=== PATIENT | female | born 1990 | race Caucasian/White ===

== ENCOUNTER 2017-05-25 15:15 | Emergency (ER) | payer OTHER, SELFPAY | END 2017-05-25 15:46 | disposition home or self-care (01) | PROVIDERS: Family Provider Internal Medicine Adolescent Medicine | DX: J20.9 Acute bronchitis, unspecified (principal); Z34.82 Encounter for supervision of other normal pregnancy, second trimester | CPT/HCPCS: 87804 ==

== ENCOUNTER → 2017-07-01 13:58 | Outpatient (CLI) | payer OTHER, SELFPAY ==
--- NOTE | 2017-07-01 14:00 | US_ITS ---
US OB /maternal detail: INDICATION: Anatomy exam ITS.REASON: US OB Complete ORDERING PHYSICIAN: Kee Priest MD PATIENT AGE: 27 years TECHNIQUE: ultrasound transabdominal scanning. COMPARISON: No previous relevant studies. FINDINGS: Single viable intrauterine gestation. Cephalic position. Placenta: Posterior placenta grade 1. There is average amount fluid. The cervix appears satisfactory. Closed and measuring 3 cm in length. Complete survey performed and was unremarkable on the submitted images as in PACS. No discrete anomalies identified on survey imaging by technologist. Active fetus. Three-vessel cord with satisfactory umbilical cord insertion. 4- chamber heart noted. Survey of brain & ventricles. Face and neck survey unremarkable. Diaphragm and chest views unremarkable. Abdomen: Both kidneys noted and unremarkable. Stomach noted and satisfactory. Spine: Survey of the spine satisfactory with no anomalies identified nor imaged. Both arms and legs noted. Amniotic Fluid: Adequate. Maternal adnexa: No significant findings. Measurements: Average ultrasound age 20w6d. Gestational Age 20w6d. Estimated due date by ultrasound age 0611/12/2017. Estimated weight 383 grams.. This is 46 percentile based on last menstrual period BPD = 20w5d OFD = 21w4d HC = 20w4d AC = 20w4d FL = 21w3d Heart Rate = 150 bpm Cerebellum = 21w5d Humerus = 21w4d HC/AC is 1.17 (1.09-1.26). CI is 75%. FL/BPD is 74%. FL/AC is 23%. IMPRESSION: There is a live intrauterine gestation with an average ultrasound age of 20 weeks 6 days cephalic presentation. heart and body motion noted. No obvious anomalies. Please see above for detail.
== END ==
PROVIDERS: Family Provider Internal Medicine Adolescent Medicine; PCP Internal Medicine Adolescent Medicine; Visit Provider Nurse Practitioner Obstetrics & Gynecology
DX: Z36.0 Encounter for antenatal screening for chromosomal anomalies (principal); Z3A.20 20 weeks gestation of pregnancy; O32.1XX1 Maternal care for breech presentation, fetus 1; O13.9 Gestational [pregnancy-induced] hypertension without significant proteinuria, unspecified trimester
CPT/HCPCS: 76811

== ENCOUNTER 2017-07-29 09:27 | Outpatient (CLI) | payer OTHER, SELFPAY ==
[2017-07-29 09:49] VITALS: BP 127/106; PULSE 96; RESP 20; TEMP 36.7; BMI 33.1
[2017-07-29 10:36] VITALS: BMI 34.7
[2017-07-29 10:37] LABS: Microscopic, Urine URINE MICROSCOPIC (MICROSCOPIC)
[2017-07-29 10:42] LABS: Basophils % 0.1 % (0.1-2.0); Eosinophils % 0.2 % (0.1-12.0); Hematocrit 34.4 % (37.0-47.0); Hemoglobin 11.3 g/dL (12.2-16.2); Lymphocytes # 1.2 K/mm3 (0.7-4.5); Lymphocytes % 8.5 K/mm3 (10-50); Mean Corpuscular HGB Conc 32.8 g/dL (31.8-35.4); Mean Corpuscular Volume 88.4 fl (81-99); Mean Platelet Volume 7.1 fl (7.4-10.4); Monocytes # 0.4 K/mm3 (0.1-1.0); Monocytes % 2.8 % (1.7-9.3); Neutrophils # 12.1 K/mm3 (1.8-7.8); Neutrophils % 88.3 % (37.0-80.0); Platelet Count 284 K/mm3 (142-424); Red Blood Count 3.89 M/mm3 (4.20-5.40); Red Cell Distribution Width 14.2 % (11.5-17.5); White Blood Count 13.7 K/mm3 (4.8-10.8)
[2017-07-29 10:43] LABS: MANUAL DIFFERENTIAL MANUAL DIFFERENTIAL (MANUAL DIFF)
[2017-07-29 10:49] LABS: Appearance,Urine SL CLOUDY (Clear); Bilirubin,Urine Negative (Negative); Blood, Urine 3+ (Negative); Color,Urine YELLOW (Yellow); Glucose,Urine (UA) Negative (Negative); Ketones,Urine 1+ (Negative); Leukocyte Esterase,Urine TRACE (Negative); Nitrate,Urine Negative (Negative); PH,Urine 6.5 (5.0-8.5); Protein,Urine 1+ (Negative); Specific Gravity, Urine >= 1.030 (1.005-1.030); Urobilinogen,Urine 0.2 EU/dl (0.2)
[2017-07-29 10:50] LABS: Activated Partial Thrombo Time 25.9 seconds (23.6-34.0); Fibrinogen 366 mg/dL (204-500); INR 0.91 (0.9-1.1); Prothrombin Time 9.8 seconds (9.4-11.8)
[2017-07-29 10:52] LABS: Alanine Aminotransferase 13 U/L (12-78); Anion Gap 11.8 mEq/L (5-15); Aspartate Amino Transferase 11 U/L (15-37); Blood Urea Nitrogen 6 mg/dL (7-18); Carbon Dioxide 25 mmol/L (21.0-32.0); Chloride 102 mmol/L (98-107); Creatinine Clearance Estimated 198 mL/min (0-300); Creatinine,Serum 0.59 mg/dL (0.55-1.02); Estimated Glomerular Filt Rate 124 ml/min (>60); GFR (African American) 150 ML/MIN (>60); Glucose 104 mg/dL (74-106); Potassium 3.8 mmoL/L (3.5-5.1); Sodium 135 mmol/L (136-145); Uric Acid 3.9 mg/dL (2.6-7.2)
[2017-07-29 11:07] LABS: Lymphocytes % 12 % (10-50); Neutrophils % 88 % (42-76); Platelet Estimate Normal; RBC Morphology Normal; Total Cells Counted 100
[2017-07-29 11:07] LABS: Bacteria,Urine 1+ /lpf; Calcium Oxalate Crystals,Urine Trace /lpf; RBC,Urine 20-50 #/hpf (0-3); Squamous Epithelial Cell,Urine Occasional #/hpf (0-5); WBC,Urine Occasional #/hpf (0-3)
[2017-07-29 11:13] LABS: D-Dimer 656 (0-400)
[2017-07-29 11:29] LABS: Fetal Fibronectin (Rapid) Negative (Negative)
--- NOTE | 2017-07-29 12:26 | US_ITS ---
US OB >= 14 weeks Fetus: INDICATION: Abdominal pain, flank pain, pelvic pain ITS.REASON: possible kidney stones, check on fetus as well Bpp ORDERING PHYSICIAN: Kee Priest MD PATIENT AGE: 27 years TECHNIQUE: ultrasound transabdominal scanning. There is a single live fetus which is in the breech presentation. Fetus is active. Heart rate is 158 bpm. Biometric measurements were not obtained. The placenta is posterior. No previa or abruption. The cervix is closed 4 cm. IMPRESSION: Live intrauterine gestation in breech presentation as described above
--- NOTE | 2017-07-29 13:56 | US_ITS ---
US kidney retroperitoneal comp HISTORY: ITS.REASON: HEMATURIA, BACK PAIN ORDERING PHYSICIAN: Kee Priest MD PATIENT AGE: 27 years COMPARISON: None FINDINGS: RIGHT KIDNEY:11 x 6 x 7 cm. There is minimal ectasia of the right renal collecting system. No renal mass or perinephric fluid. LEFT KIDNEY:12 x 6 x 6 cm also with mild ectasia of the left renal collecting system. No perinephric fluid or renal mass apparent. OTHER FINDINGS: No other pertinent findings IMPRESSION: Mild ectasia of both renal collecting systems which may be seen in a patient with a gravid uterus. This is usually more prominent however on the right. This raises the suspicion of mild obstruction of left kidney versus a passed stone. Continued follow-up recommended
--- NOTE | 2017-07-29 14:43 | P.PN_ITS ---
Internal Medicine - PN: Subj *Date: 07/29/17 *Time: 14:41 Interval history: She is a 27-year-old 2 para 1 who was seen in my office this morning with severe left flank pain and nausea and vomiting. She was brought up to labor and delivery for observation. Exam Vital signs and Labs for Last 24 Hours: Temp Pulse Resp BP 98.0 F 96 H 20 127/106 07/29/17 09:49 07/29/17 09:49 07/29/17 09:49 07/29/17 09:49 Laboratory Results - last 24 hr 07/29/17 10:14: Urine Color Yellow, Urine Appearance Sl cloudy, Urine pH 6.5, Ur Specific [place] >= 1.030, Urine Protein 1+, Urine Glucose (UA) Negative, Urine Ketones 1+, Urine Blood 3+, Urine Nitrate Negative, Urine Bilirubin Negative, Urine Urobilinogen 0.2, Ur Leukocyte Esterase Trace, Urine RBC 20-50, Urine WBC Occasional, Ur Squamous Epith Cells Occasional, Calcium Oxalate Crystal Trace, Urine Bacteria 1+ 07/29/17 10:25: Fibronectin Negative 07/29/17 10:28: WBC 13.7 H, RBC 3.89 L, Hgb 11.3 L, Hct 34.4 L, MCV 88.4, MCH 29.0, MCHC 32.8, RDW 14.2, Plt Count 284, MPV 7.1 L, Neut % (Auto) 88.3 H, Lymph % (Auto) 8.5 L, Taylor % (Auto) 2.8, Eos % (Auto) 0.2, Baso % (Auto) 0.1, Neut # (Auto) 12.1 H, Lymph # (Auto) 1.2, Taylor # (Auto) 0.4, Eos # (Auto) 0.0, Baso # (Auto) 0.0, Total Counted 100, Neutrophils % (Manual) 88 H, Lymphocytes % (Manual) 12, Platelet Estimate Normal, RBC Morphology Normal 07/29/17 10:28: PT 9.8, INR 0.91, APTT 25.9, Fibrinogen 366, D-Dimer 656 H* 07/29/17 10:28: Sodium 135 L, Potassium 3.8, Chloride 102, Carbon Dioxide 25, Anion Gap 11.8, BUN 6 L, Creatinine 0.59, Estimated Creat Clear 198, Estimated GFR 124, Est GFR ( Amer) 150, Glucose 104, Uric Acid 3.9, AST 11 L, ALT 13 I & O for Last 24 hours: Intake & Output 07/27/17 07/28/17 07/29/17 07/30/17 11:59 11:59 11:59 11:59 Weight 190 lb - Constitutional no acute distress Assessment and Plan (1) Renal colic on left side Current visit: Yes Status: Acute Category: Medical Code(s): N23 - Unspecified renal colic - Assessment and plan all Dx Assessment and Plan for all problems:: Her urinalysis showed 3+ blood and calcium oxalate crystals. She had an ultrasound that showed a normal size fetus in the breech presentation. She had mild hydronephrosis on the left side. I suspect she had a kidney stone that she passed. She will follow-up with me in 4 weeks time in the office. Much better now. Given her a slip for her urine as well.
== END 2017-07-29 15:03 | disposition home or self-care (01) ==
LOC: OBOUT 09:28 → OB 09:30
PROVIDERS: PCP Internal Medicine Adolescent Medicine; Visit Provider Nurse Practitioner Obstetrics & Gynecology
DX: Z3A.24 24 weeks gestation of pregnancy; O13.2 Gestational [pregnancy-induced] hypertension without significant proteinuria, second trimester; O21.9 Vomiting of pregnancy, unspecified
CPT/HCPCS: 36415; 59025; 76770; 76805; 80048; 81001; 82731; 84450; 84460; 84550; 85007; 85025; 85378; 85384; 85610; 85730; 96360

== ENCOUNTER → 2017-08-29 08:47 | Outpatient (CLI) | payer OTHER, SELFPAY ==
[2017-08-29 09:16] LABS: Basophils % 0.1 % (0.1-2.0); Eosinophils # 0.1 K/mm3 (0.0-0.4); Eosinophils % 1.3 % (0.1-12.0); Hematocrit 34.4 % (37.0-47.0); Hemoglobin 11.4 g/dL (12.2-16.2); Lymphocytes # 1.7 K/mm3 (0.7-4.5); Lymphocytes % 16.5 K/mm3 (10-50); Mean Corpuscular HGB Conc 33.2 g/dL (31.8-35.4); Mean Corpuscular Hemoglobin 29.1 pg (27.0-31.2); Mean Corpuscular Volume 87.6 fl (81-99); Mean Platelet Volume 7.1 fl (7.4-10.4); Monocytes # 0.5 K/mm3 (0.1-1.0); Monocytes % 4.3 % (1.7-9.3); Neutrophils # 8.2 K/mm3 (1.8-7.8); Neutrophils % 77.7 % (37.0-80.0); Platelet Count 276 K/mm3 (142-424); Red Blood Count 3.93 M/mm3 (4.20-5.40); Red Cell Distribution Width 13.8 % (11.5-17.5); White Blood Count 10.5 K/mm3 (4.8-10.8)
[2017-08-29 09:51] LABS: Glucose,Fasting 79 mg/dL (60-105)
[2017-08-29 11:35] LABS: Glucose 1 Hour 127 mg/dL (74-106)
[2017-08-30 08:20] LABS: HIV Screen 4th Generation wRfx Non Reactive (Non Reactive)
[2017-08-30 19:01] LABS: Hepatitis B Surface Antigen Negative (Negative); Hepatitis C Antibody <0.1 s/co ratio (0.0-0.9); Rapid Plasma Reagin Ab Titer Non Reactive (NonRea<1:1); Rubella Antibodies, IgG <0.90 index (Immune >0.99)
== END ==
PROVIDERS: Visit Provider Nurse Practitioner Obstetrics & Gynecology
DX: Z34.90 Encounter for supervision of normal pregnancy, unspecified, unspecified trimester (principal)
CPT/HCPCS: 36415; 82951; 85025; 86592; 86703; 86762; 86850; 87340; 87380; G0432

== ENCOUNTER → 2017-10-14 18:05 | Outpatient (REF) | payer OTHER, SELFPAY | LOC: LAB 18:05 | PROVIDERS: Visit Provider Nurse Practitioner Obstetrics & Gynecology | DX: Z34.90 Encounter for supervision of normal pregnancy, unspecified, unspecified trimester (principal) | CPT/HCPCS: 86403 ==

== ENCOUNTER 2017-10-27 11:35 | Inpatient (IN) ==
[2017-10-27 13:08] LABS: Basophils % 0.2 % (0.1-2.0); Eosinophils # 0.2 K/mm3 (0.0-0.4); Eosinophils % 1.7 % (0.1-12.0); Hematocrit 36.4 % (37.0-47.0); Hemoglobin 11.9 g/dL (12.2-16.2); Lymphocytes # 1.6 K/mm3 (0.7-4.5); Lymphocytes % 16.8 K/mm3 (10-50); Mean Corpuscular HGB Conc 32.7 g/dL (31.8-35.4); Mean Corpuscular Hemoglobin 28.5 pg (27.0-31.2); Mean Platelet Volume 7.5 fl (7.4-10.4); Monocytes # 0.4 K/mm3 (0.1-1.0); Monocytes % 4.2 % (1.7-9.3); Neutrophils # 7.2 K/mm3 (1.8-7.8); Neutrophils % 77.1 % (37.0-80.0); Platelet Count 258 K/mm3 (142-424); Red Blood Count 4.18 M/mm3 (4.20-5.40); White Blood Count 9.4 K/mm3 (4.8-10.8)
--- NOTE | 2017-10-27 17:36 | Progress Note ---
[facility] Anesthesia Checklist - Patient Identification Patient Identification: Arm Band, Verbal (Name & ) - Structural Data Admitted From: Home Consent for Planned Operative Procedure(s) Verified: Yes Verified Documents: Surgical Consent, History and Physical - NPO Status Verified Time NPO: 00:00 - Additional verifications Patient : Yes Anesthesia Reactions: No - Airway Assessment C-Spine Mobility Assessed: Yes TMJ Mobility Assessed: Yes Dentition: Good Dentition - Neurological Assessment Level of Consciousness: Awake Hx Seizures: No Numbness or tingling in extremities: No - Anesthesia Plan Anesthesia Risk discussed: Yes Anesthesia Plan: Verified ASA Class: II Anesthesia Type: Spinal [facility] Anesthesia HX I have reviewed the patient's past medical history: Yes 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: Denies:: Anxiety, Asthma, Depression, Diabetes Mellitus Type 1, Hyperlipidemia, Hypertension Laterality Cases: Bilateral: Other Other Surgeries: Yes: , Dilation and Curettage, Other Amputation: No Fractures: No *Family Hx:: Hypertension, Diabetes
--- NOTE | 2017-10-27 17:38 | Progress Note ---
[facility] Anesthesia Record Part I Intake, IV Amount: 1,000 Estimated blood loss (mL): 700 Urine output (mL): 500 Blood Products used (#): none Blood Pressure: 138/40 SaO2: 100 Pulse Rate: 93 Respiratory Rate: 16 Temperature: 98.7 F Patient is:: Awake, Stable Stable to PACU at:: 17:25
--- NOTE | 2017-10-27 17:38 | Progress Note ---
[facility] Anesthesia Record Part II Discharge Time: 17:55 Destination: Obstetric PACU nurse assessment reviewed?: Yes Patient Condition:: Good Anesthesia Complications:: None
--- NOTE | 2017-10-28 01:10 | Operative Note ---
Pre-Op/Post-Op Diagnoses Operation Date: 10/27/17 15:00 <No data on this case meets the specified criteria> 1. IUP 37 06/01 2. Previous c section 3. CHTN with superimposed preeclampsia 4. Obesity 5. Undesired fertility Procedure: Procedures Operation Date: 10/27/17 15:00 Actual Procedures Side Surgeon p Repeat C Section with bilateral tubal ligation Not Applicable Fabiola Casas MD Tin Pourer: Raji Joseph Estimated blood loss (mL): 700 Disposition: PACU Anesthesia type: Spinal Complications: none Narrative: The patient was taken to the OR and spinal administered without difficulty. She was prepped and draped in supine position. A pfannenstiel skin incision was made through the previous scar and carried down to the fascia. The fascia was entered sharply and extended laterally with john scissors. The rectus muscles were sharply dissected off the fascia and in the midline. The peritoneum was entered sharply and extended bluntly, with good visualization of underlying structures. The vesicouterine peritoneum was entered sharply and extended on either side, and the bladder flap was created digitally. The uterine incision was made in the lower uterine segment with a scalpel in a transverse fashion and extended bluntly. Amniotomy was performed and the vertex was grasped and delivered atraumatically. Nuchal cord x 1 reduced between delivery of the vertex and the body. Nose/mouth were bulb suctioned and the was handed off to awaiting finisher plate after umbilical cord cut. The placenta was manually extracted and the uterus was cleared of all clot/debris. The uterine incision was repaired with 0-vicryl in running/locked fashion. A second, imbricating layer was placed and surgicel placed over the uterine incision for additional hemostasis. The patient desired tubal ligation and consent signed prior to procedure. The fallopian tubes were identified bilaterally, and double clamped with beatrice clamp, suture ligated and the intervening segment excised and sent for pathology. All pedicles hemostatic. All sponges and instruments were removed from her abdomen. The peritoneum was closed with 2-0 vicryl. Fascia closed with 0-vicryl. The skin was closed with richar. The patient tolerated procedures well. All sponge, lap, needle & instrument counts correct x 2. She was taken to recovery room in stable condition. - [place] Baby 1 at 1 minute: 6 at 5 minutes: 9 (nuchal cord x 1)
[2017-10-28 05:53] LABS: Basophils % 0.1 % (0.1-2.0); Eosinophils % 0.1 % (0.1-12.0); Hematocrit 34.7 % (37.0-47.0); Hemoglobin 11.1 g/dL (12.2-16.2); Lymphocytes # 2.2 K/mm3 (0.7-4.5); Lymphocytes % 14.6 K/mm3 (10-50); Mean Corpuscular HGB Conc 32.1 g/dL (31.8-35.4); Mean Corpuscular Hemoglobin 28.1 pg (27.0-31.2); Mean Corpuscular Volume 87.4 fl (81-99); Mean Platelet Volume 7.6 fl (7.4-10.4); Monocytes # 0.8 K/mm3 (0.1-1.0); Monocytes % 5.5 % (1.7-9.3); Neutrophils # 12.2 K/mm3 (1.8-7.8); Neutrophils % 79.7 % (37.0-80.0); Platelet Count 254 K/mm3 (142-424); Red Blood Count 3.97 M/mm3 (4.20-5.40); Red Cell Distribution Width 14.1 % (11.5-17.5); White Blood Count 15.3 K/mm3 (4.8-10.8)
[2017-10-28 06:23] LABS: Anisocytosis 1+; Lymphocytes % 17 % (10-50); Monocytes % 3 % (2-9); Neutrophils % 80 % (42-76); Total Cells Counted 100
--- NOTE | 2017-10-28 08:33 | Pharmacy Consult Notes ---
[facility] Pharmacy VTE Monitoring - Patient Demographics Admission date: 10/28/17 Report Date: 10/28/17 Time: 08:33 Allergies/Adverse Reactions: Patient Allergies No Known Allergies Allergy (Unverified 10/28/17 07:37) Height: 1.57 m Weight: 90.718 kg - VTE Risk Labs: VTE Related Lab Results Hgb 11.1 g/dL (12.2-16.2) L 10/28/17 05:15 Hct 34.7 % (37.0-47.0) L 10/28/17 05:15 Plt Count 254 K/mm3 (142-424) 10/28/17 05:15 Clinical Trial Participant: No - Prophylaxis VTE Prophylaxis Ordered?: Yes Types of VTE Prophylaxis: IPCS Knee High (POST OP)
[2017-10-28 08:54] LABS: Microscopic, Urine URINE MICROSCOPIC (MICROSCOPIC)
[2017-10-28 09:12] LABS: Bilirubin,Urine Negative (Negative); Blood, Urine TRACE-L (Negative); Color,Urine YELLOW (Yellow); Glucose,Urine (UA) Negative (Negative); Ketones,Urine 2+ (Negative); Leukocyte Esterase,Urine 2+ (Negative); Protein,Urine Negative (Negative); Urobilinogen,Urine 0.2 EU/dl (0.2)
[2017-10-28 09:13] LABS: Appearance,Urine Cloudy (Clear)
[2017-10-28 09:37] LABS: RBC,Urine Occasional #/hpf (0-3)
[2017-10-28 09:38] LABS: Bacteria,Urine Trace /lpf
--- NOTE | 2017-10-28 09:59 | Progress Note ---
Internal Medicine - PN: Subj *Date: 10/28/17 *Time: 09:56 Interval history: POD #1 repeat CS No complaints Tolerating regular diet; lochia appropriate Good pain control Exam Vital signs and Labs for Last 24 Hours: Temp Pulse Resp BP Pulse Ox 97.6 F 75 16 117/73 96 10/28/17 07:40 10/28/17 07:40 10/28/17 07:40 10/28/17 07:40 10/28/17 07:40 Laboratory Results - last 24 hr 10/27/17 12:55: WBC 9.4, RBC 4.18 L, Hgb 11.9 L, Hct 36.4 L, MCV 87.0, MCH 28.5 , MCHC 32.7, RDW 14.0, Plt Count 258, MPV 7.5, Neut % (Auto) 77.1, Lymph % (Auto ) 16.8, [place]man % (Auto) 4.2, Eos % (Auto) 1.7, Baso % (Auto) 0.2, Neut # (Auto) 7.2, Lymph # (Auto) 1.6, [place]man # (Auto) 0.4, Eos # (Auto) 0.2, Baso # (Auto) 0.0 10/27/17 12:55: Blood Type O Positive, Antibody Screen Negative 10/27/17 14:35: Urine Color Yellow, Urine Appearance Cloudy, Urine pH 7.0, Ur Specific [place] 1.010, Urine Protein Negative, Urine Glucose (UA) Negative, Urine Ketones 2+, Urine Blood Trace-l, Urine Nitrate Negative, Urine Bilirubin Negative, Urine Urobilinogen 0.2, Ur Leukocyte Esterase 2+ A, Urine RBC Occasional, Urine WBC 5-10, Ur Squamous Epith Cells 5-10, Urine Bacteria Trace 10/27/17 16:30: Cord ABG pH 7.15 L* 10/28/17 05:15: WBC 15.3 H D, RBC 3.97 L, Hgb 11.1 L, Hct 34.7 L, MCV 87.4, MCH 28.1, MCHC 32.1, RDW 14.1, Plt Count 254, MPV 7.6, Neut % (Auto) 79.7, Lymph % ( Auto) 14.6, [place] % (Auto) 5.5, Eos % (Auto) 0.1, Baso % (Auto) 0.1, Neut # (Auto ) 12.2 H, Lymph # (Auto) 2.2, [place] # (Auto) 0.8, Eos # (Auto) 0.0, Baso # (Auto ) 0.0, Total Counted 100, Neutrophils % (Manual) 80 H, Lymphocytes % (Manual) 17 , Monocytes % (Manual) 3, Platelet Estimate Normal, Anisocytosis 1+ I & O for Last 24 hours: Intake & Output 10/25/17 10/26/17 10/27/17 10/28/17 11:59 11:59 11:59 11:59 Intake Total 1000 / 1000 Balance 1000 / 1000 Weight 200 lb 200 lb - Constitutional no acute distress - *Routine HEENT Exam Head: Present: normocephalic, atraumatic. Absent: facial swelling - *Routine Respiratory Exam Present: CTA bilaterally. Absent: respiratory distress - *Routine Cardiovascular Exam Present: RRR. Absent: tachycardia - *Routine Abdominal Exam Present: soft. Absent: tenderness, distended, guarding Comments: dressing D/I - *Routine Exam Comments: Fundus firm below umbilicus - *Routine Extremities Exam Present: edema (1+) - *Routine Skin Exam Present: dry, warm. Absent: lesions, rash - *Routine Neurological Exam Present: alert, oriented X3, normal speech - Routine Psychiatric Exam Absent: depressed, anxious Assessment and Plan (1) Previous section Problem details: x1 Current visit: No Status: Chronic Category: Surgical Code(s): Z98.891 - History of uterine scar from previous surgery (2) tubal ligation planned Problem details: consent signed & on chart Current visit: No Status: Acute Category: Medical (3) Hypertension complicating Problem details: labetalol 200 BID Current visit: No Status: Acute Category: Medical Code(s): O16.9 - Unspecified maternal hypertension, unspecified trimester (4) Preeclampsia complicating hypertension Current visit: No Status: Acute Category: Medical Code(s): O11.9 - Pre- existing hypertension with pre-eclampsia, unspecified trimester (5) Obesity, Class II, BMI 35-39.9 Current visit: No Status: Chronic Category: Medical Code(s): E66.9 - Obesity, unspecified - Assessment and plan all Dx Assessment and Plan for all problems:: POD #1 Routine postop care Advance diet, dc topete, begin po pain meds when Duramorph wears off Possible DC home tomorrow if baby ready for discharge
--- NOTE | 2017-10-29 13:13 | Discharge Summary ---
General - General Admission date:: 10/27/17 Discharge date: 10/29/17 HPI HPI: POD #2 elective repeat CS at 37 1/7 due to CHTN with superimposed preeclampsia course uneventful and without complication Ambulating, tolerating reg diet and voiding without difficulty Hgb 11.9 at admission and 11.1 at discharge Lochia appropriate and good pain control Hospital Course Hospital Course: POD #2 elective repeat CS at 37 1/7 due to CHTN with superimposed preeclampsia course uneventful and without complication Ambulating, tolerating reg diet and voiding without difficulty Hgb 11.9 at admission and 11.1 at discharge Lochia appropriate and good pain control Objective Vital signs: Temp Pulse Resp BP Pulse Ox 97.6 F 75 16 117/73 96 10/28/17 07:40 10/28/17 07:40 10/29/17 08:22 10/28/17 07:40 10/28/17 07:40 no acute distress - Routine Chest/Breast/Axilla Exam Breast: Absent: induration, swelling, erythema, rashes - *Routine Respiratory Exam Absent: accessory muscle use, respiratory distress - *Routine Cardiovascular Exam Absent: tachycardia - *Routine Abdominal Exam Present: soft, tenderness (approprite postop). Absent: distended, rebound, guarding Comments: Incision dry without erythema/induration/drainage/bleeding. Andrew intact. - *Routine Extremities Exam Present: edema Comments: 1+ - *Routine Skin Exam Present: dry, warm. Absent: rash - *Routine Neurological Exam Present: alert, oriented X3 - Routine Psychiatric Exam Absent: depressed, anxious Results Labs on day of discharge: Preliminary micro results at discharge 10/27/17 14:35 Urine Culture - Preliminary Urine,Catheterized NO GROWTH AFTER 24 HOURS DS: Diagnosis - Discharge Diagnosis (1) Previous section Status: Chronic Problem details: x1 (2) tubal ligation planned Status: Acute Problem details: consent signed & on chart (3) Hypertension complicating Status: Acute Problem details: labetalol 200 BID (4) Preeclampsia complicating hypertension Status: Acute (5) Obesity, Class II, BMI 35-39.9 Status: Chronic (6) Delivery by section using transverse incision of lower segment of uterus Status: Acute Discharge Plan - Patient Discharge Instructions ACTIVITY: Limited activity, No heavy lifting DIET: regular diet - Follow up Plan Disposition: Home, Self-Retirement Medications: Home Medications Medication Instructions Recorded Confirmed Type 1 tab PO DAILY 05/22/17 10/28/17 History vitamin,calcium,ovzxdmjh-bwtv-hdywb acid tablet magnesium oxide 500 mg capsule 500 mg PO DAILY cap 06/02/17 10/28/17 History Ferrous Sulfate 325 mg PO DAILY 07/29/17 10/27/17 History loratadine 10 mg tablet 10 mg PO DAILY 10/22/17 10/28/17 History labetalol 200 mg tablet 200 mg PO BID 10/27/17 10/27/17 History Prescriptions/Medication Reconciliation: New Oxycodone HCl [OxyIR 5mg tablet] 5 mg PO Q4HP PRN tablet PRN Reason: Moderate Pain Continue vitamin,calcium,stjjrslh-dndy-lblru acid tablet 1 tab PO DAILY loratadine 10 mg tablet 10 mg PO DAILY Ferrous Sulfate 325 mg PO DAILY Discontinued magnesium oxide 500 mg capsule 500 mg PO DAILY cap No Action labetalol 200 mg tablet 200 mg PO BID
== END 2017-10-29 14:20 | disposition home or self-care (01) ==
LOC: OB 11:35
PROVIDERS: ADMIT Obstetrics & Gynecology; ATTEND Obstetrics & Gynecology
CPT/HCPCS: J2405

== ENCOUNTER 2017-10-31 09:22 | Outpatient (CLI) | payer OTHER, SELFPAY ==
--- NOTE | 2017-10-31 16:24 | PC.NURSE ---
PT WAS HERE FOR REMOVAL OF ESCOBAR FROM C SECTION; REMOVED ESCOBAR; APPLIED MASTISOL AND STERISTRIPS; PT TOLERATED WITHOUT ANY PROBLEMS
== END 2017-10-31 09:45 | disposition home or self-care (01) ==
LOC: INF 09:24
PROVIDERS: PCP Internal Medicine Adolescent Medicine; Visit Provider Obstetrics & Gynecology
DX: Z48.02 Encounter for removal of sutures (principal)
CPT/HCPCS: G0463

== ENCOUNTER → 2017-12-25 15:36 | Outpatient (CLI) | payer OTHER, SELFPAY ==
[2017-12-25 16:09] LABS: Blood Urea Nitrogen 13 mg/dL (7-18); Carbon Dioxide 31 mmol/L (21.0-32.0); Chloride 98 mmol/L (98-107); Creatinine,Serum 0.77 mg/dL (0.55-1.02); Estimated Glomerular Filt Rate 91 ml/min (>60); GFR (African American) 111 ML/MIN (>60); Glucose 102 mg/dL (74-106); Sodium 134 mmol/L (136-145)
[2017-12-25 16:16] LABS: Calcium 12.7 mg/dL (8.5-10.1)
== END ==
PROVIDERS: Visit Provider Nurse Practitioner Family
DX: O16.9 Unspecified maternal hypertension, unspecified trimester (principal)
CPT/HCPCS: 36415; 80048

== ENCOUNTER → 2017-12-26 11:38 | Outpatient (CLI) | payer OTHER, SELFPAY ==
[2017-12-26 11:41] LABS: Microscopic, Urine URINE MICROSCOPIC (MICROSCOPIC)
[2017-12-26 11:56] LABS: Appearance,Urine CLEAR (Clear); Bilirubin,Urine Negative (Negative); Blood, Urine 2+ (Negative); Color,Urine YELLOW (Yellow); Glucose,Urine (UA) Negative (Negative); Ketones,Urine TRACE (Negative); Leukocyte Esterase,Urine TRACE (Negative); Nitrate,Urine Negative (Negative); PH,Urine 6.5 (5.0-8.5); Protein,Urine TRACE (Negative); Urobilinogen,Urine 0.2 EU/dl (0.2)
[2017-12-26 11:58] LABS: Basophils # 0.1 K/mm3 (0-0.2); Basophils % 0.8 % (0.1-2.0); Eosinophils # 0.9 K/mm3 (0.0-0.4); Eosinophils % 10.6 % (0.1-12.0); Hematocrit 43.3 % (37.0-47.0); Hemoglobin 14.5 g/dL (12.2-16.2); Lymphocytes # 2.2 K/mm3 (0.7-4.5); Lymphocytes % 25.2 K/mm3 (10-50); Mean Corpuscular HGB Conc 33.5 g/dL (31.8-35.4); Mean Corpuscular Hemoglobin 28.1 pg (27.0-31.2); Mean Corpuscular Volume 83.9 fl (81-99); Mean Platelet Volume 6.3 fl (7.4-10.4); Monocytes # 0.5 K/mm3 (0.1-1.0); Monocytes % 5.4 % (1.7-9.3); Neutrophils # 5.1 K/mm3 (1.8-7.8); Neutrophils % 57.9 % (37.0-80.0); Platelet Count 419 K/mm3 (142-424); Red Blood Count 5.16 M/mm3 (4.20-5.40); Red Cell Distribution Width 12.5 % (11.5-17.5); White Blood Count 8.8 K/mm3 (4.8-10.8)
[2017-12-26 12:26] LABS: Bacteria,Urine 3+ /lpf
[2017-12-26 14:58] LABS: Alanine Aminotransferase 47 U/L (12-78); Albumin Level 4.1 gm/dL (3.4-5.0); Alkaline Phosphatase 120 U/L (46-116); Aspartate Amino Transferase 20 U/L (15-37); Bilirubin,Total 0.5 mg/dL (0.2-1.0); Blood Urea Nitrogen 14 mg/dL (7-18); Calcium 11.7 mg/dL (8.5-10.1); Carbon Dioxide 28 mmol/L (21.0-32.0); Chloride 102 mmol/L (98-107); Estimated Glomerular Filt Rate 102 ml/min (>60); GFR (African American) 123 ML/MIN (>60); Globulin 4.1 gm/dl (1.3-3.2); Glucose 111 mg/dL (74-106); Sodium 136 mmol/L (136-145); Thyroid Stimulating Hormone 1.31 uIU/ml (0.358-3.740); Total Protein,Serum 8.2 gm/dL (6.4-8.2)
[2017-12-27 18:06] LABS: Calcium, Ionized 6.5 mg/dL (4.5-5.6)
[2017-12-28 20:31] LABS: Parathyroid Hormone Intact 8 pg/mL (15-65)
== END ==
PROVIDERS: Visit Provider Nurse Practitioner Family
DX: O16.9 Unspecified maternal hypertension, unspecified trimester (principal); E83.52 Hypercalcemia
CPT/HCPCS: 36415; 80053; 81001; 82330; 83970; 84443; 85025; 87086

== ENCOUNTER → 2017-12-30 12:04 | Outpatient (CLI) | payer OTHER, SELFPAY ==
[2017-12-30 13:35] LABS: Blood Urea Nitrogen 11 mg/dL (7-18); Calcium 9.6 mg/dL (8.5-10.1); Carbon Dioxide 29 mmol/L (21.0-32.0); Chloride 105 mmol/L (98-107); Creatinine,Serum 0.61 mg/dL (0.55-1.02); Estimated Glomerular Filt Rate 120 ml/min (>60); GFR (African American) 145 ML/MIN (>60); Glucose 82 mg/dL (74-106); Sodium 139 mmol/L (136-145)
== END ==
PROVIDERS: Visit Provider Nurse Practitioner Family
DX: E83.52 Hypercalcemia (principal)
CPT/HCPCS: 36415; 80048

== ENCOUNTER → 2020-11-07 10:24 | Outpatient (CLI) | payer OTHER, SELFPAY ==
--- NOTE | 2020-11-07 10:25 | US_ITS ---
PROCEDURE: US TRANSVAGINAL CLINICAL INDICATION: Heavy Bleeding COMPARISON: No exams were available for comparison FINDINGS: UTERUS: x 6cmx 4cm with a combined endometrial thickness of 9.9mm LEFT OVARY: 4suf0mxk5.9cm with a volume of 8.6ml. RIGHT OVARY: 4cmx 2mvt5nq with a volume of 21ml. Few tiny cervical nabothian cyst noted. There is a 2.5 centimeter complex cyst on the right ovary. There are a few small follicular type cysts on the left ovary. No free fluid in the posterior cul-de-sac or pelvis. IMPRESSION: 2.5 cm complex cyst on the right ovary. Repeat transvaginal ultrasound in 6 or 12 weeks recommended. Few tiny cervical nabothian cyst. Otherwise unremarkable transvaginal ultrasound. Dictated by: Enrico Wilcox MD 11/07/2020 15:44 Enrico Wilcox MD in [place] 11/07/2020 15:44
== END ==
PROVIDERS: PCP Internal Medicine Adolescent Medicine; Visit Provider Nurse Practitioner Obstetrics & Gynecology
DX: N92.0 Excessive and frequent menstruation with regular cycle (principal)
CPT/HCPCS: 76830

== ENCOUNTER → 2020-11-29 07:59 | Outpatient (CLI) | payer OTHER, SELFPAY ==
[2020-11-29 08:23] LABS: Basophils # 0.1 K/mm3 (0-0.2); Basophils % 0.8 % (0.1-2.0); Eosinophils # 0.4 K/mm3 (0.0-0.4); Eosinophils % 5.5 % (0.1-12.0); Hematocrit 39.3 % (37.0-47.0); Hemoglobin 13.6 g/dL (12.2-16.2); Lymphocytes # 3.1 K/mm3 (0.7-4.5); Lymphocytes % 40.5 % (10-50); Mean Corpuscular HGB Conc 34.7 g/dL (31.8-35.4); Mean Corpuscular Hemoglobin 28.4 pg (27.0-31.2); Mean Corpuscular Volume 81.8 fl (81-99); Monocytes # 0.4 K/mm3 (0.1-1.0); Monocytes % 5.4 % (1.7-9.3); Neutrophils # 3.6 K/mm3 (1.8-7.8); Neutrophils % 47.7 % (37.0-80.0); Platelet Count 309 K/mm3 (142-424); Red Cell Distribution Width 13.9 % (11.5-17.5); White Blood Count 7.6 K/mm3 (4.8-10.8)
[2020-11-29 08:59] LABS: Chloride 103 mmol/L (98-107); Sodium 140 mmol/L (136-145)
[2020-11-29 09:00] LABS: Potassium 4.5 mmoL/L (3.5-5.1)
[2020-11-29 09:02] LABS: Blood Urea Nitrogen 11 mg/dl (7-17); Estimated Glomerular Filt Rate 100 ml/min (>60); GFR (African American) 121 ML/MIN (>60)
[2020-11-29 09:03] LABS: Anion Gap 12.5 mEq/L (5-15); Calcium 9.1 mg/dl (8.4-10.2); Carbon Dioxide 29 mmol/L (22.0-30.0); Glucose 98 mg/dl (74-100)
[2020-11-29 09:32] LABS: HCG Qualitative, Serum Negative (Negative)
== END ==
PROVIDERS: Visit Provider Nurse Practitioner Obstetrics & Gynecology
DX: N92.0 Excessive and frequent menstruation with regular cycle (principal); Z01.818 Encounter for other preprocedural examination; Z20.822 Contact with and (suspected) exposure to COVID-19
CPT/HCPCS: 36415; 80048; 84703; 85025; U0003

== ENCOUNTER 2020-12-01 05:58 | Day surgery (SDC) | payer OTHER, SELFPAY ==
[2020-11-22 13:29] VITALS: BMI 33.3
[2020-12-01] VITALS (10 sets, daily range): BP systolic 112–153; BP diastolic 55–95; PULSE 80–117; RESP 12–20; TEMP 36.4–37.2; O2SAT 92–98
--- NOTE | 2020-12-01 06:30 | P.PN_ITS ---
[facility] Anesthesia Checklist - Patient Identification Patient Identification: Arm Band - Structural Data Admitted From: Home Planned Operative Procedure/s: Hysteroscopy D & C/Novasure ablation Consent for Planned Operative Procedure(s) Verified: Yes Verified Documents: Surgical Consent, History and Physical - NPO Status Verified Time NPO: 00:00 - Additional verifications Anesthesia Reactions: No Hx Blood Transfusions: No Blood Transfusion Reaction: No - Airway Assessment C-Spine Mobility Assessed: Yes TMJ Mobility Assessed: Yes Dentition: Good Dentition - Neurological Assessment Level of Consciousness: Awake, Alert - Anesthesia Plan Anesthesia Risk discussed: Yes Anesthesia Plan: Verified ASA Class: II Anesthesia Type: General [facility] History 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: Reports:: Anxiety, Hypertension Denies:: Asthma, Cancer, Depression, Diabetes Mellitus Type 1, Diabetes Mellitus Type 2, Hyperlipidemia, Internal Pacemaker, MRSA, Seizures *Have you ever received a pneumonia vaccine?: No *Have you received a flu vaccine this season?: No Other 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: Denies: Blood Transfusion Reaction Anesthesia experience/problems:: None Laterality Cases: Bilateral: Other Other Surgeries: Yes: , Dilation and Curettage, Tubal Ligation, Other. 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
--- NOTE | 2020-12-01 08:15 | HMH.OPNOTE ---
Date of procedure: 12/01/20 Pre-op Diagnosis:: Menorrhagia Post-op Diagnosis:: Menorrhagia Procedure performed:: Hysteroscopy, dilation and curettage, NovaSure ablation Surgeon:: Kee Priest MD INSURANCE EXAMINER:: Huang Atkinson Anesthesia: LMA Estimated blood loss (mL): 50 Clinical Note:: She is a 30-year-old lady who complains of extremely heavy periods. Ultrasound was normal endometrial biopsy was negative for hyperplasia. After having discussed the risk and benefit she elected to have a hysteroscopy, D&C and NovaSure ablation. Operative findings:: She had an anteverted slightly bulky uterus that sounded to 9 cm. The length of the cavity was 6.5 cm and the width was 4.5 cm. Endometrium otherwise appeared normal there were no polyps that I could see. Operative note:: She was taken to the operating room where LMA anesthesia was found be adequate. She was prepped and draped in the normal sterile fashion in the lithotomy position. A weighted speculum was placed in the vagina and the anterior lip of the cervix was grasped with a tenaculum. The cervix was then dilated to approximately 6 mm. I then inserted a hysteroscope into the uterine cavity and the findings were as previously dictated. I then performed a gentle curettage with a medium curette. I then sounded the uterus and determine the length of the uterus. This was placed into the NovaSure device. I then inserted the NovaSure device and determine the width of the endometrial cavity. The endometrial cavity length was 6.5 cm and the width was 4.5 cm. I then ran the device through its program. I further inspected the endometrial cavity and was found to be completely charred. I then injected 30 cc of 0.5% ropivacaine at the 3:00, 5:00, 7:00, and 9:00 positions of the cervix. She tolerated procedure well and was taken to the recovery room in excellent condition. All sponge and instrument counts were correct. The estimated blood loss was less than 50 cc. Condition: stable Disposition: PACU Specimens:: Endometrial curettings Complications:: None
--- NOTE | 2020-12-01 09:12 | P.PN_ITS ---
[facility] Anesthesia Record Part I Intake, IV Amount: 700 Estimated blood loss (mL): 30 Urine output (mL): 0 Blood Pressure: 129/73 SaO2: 92 Pulse Rate: 110 Respiratory Rate: 12 Temperature: 99 F Patient is:: Awake, Drowsy Stable to PACU at:: 08:15
--- NOTE | 2020-12-04 14:16 | HMH.ANESII ---
[facility] Anesthesia Record Part II Discharge Time: 08:35 Destination: Surgical Day Care (OP Surgery) PACU nurse assessment reviewed?: Yes Patient Condition:: Good Anesthesia Complications:: None Swallowing reflex intact?: Yes Cyanosis?: No Blood Pressure: 112/76 Pulse Rate: 87 Temperature: 98.6 F Mental Status: Alert & Oriented Pain level:: 0 Nausea and/or vomitting:: None Intake, IV Amount: 0
[2020-12-04 14:17] VITALS: BP 112/76; PULSE 87; TEMP 37
== END 2020-12-01 09:21 | disposition home or self-care (01) ==
LOC: OR 06:00
PROVIDERS: PCP Internal Medicine Adolescent Medicine; Visit Provider Nurse Practitioner Obstetrics & Gynecology
PROC: 0U5B8ZZ Destruction of Endometrium, Via Natural or Artificial Opening Endoscopic (ICD-10-PCS; CPT 58563; principal; 2020-12-01 07:30)
DX: N92.0 Excessive and frequent menstruation with regular cycle (principal)
CPT/HCPCS: 58353; 96374; J2405

== ENCOUNTER → 2021-02-01 13:01 | Outpatient (CLI) | payer OTHER, SELFPAY ==
--- NOTE | 2021-02-01 13:01 | US_ITS ---
PROCEDURE: US TRANSVAGINAL CLINICAL INDICATION: follow up us to Right ovarian cyst COMPARISON: US US TRANSVAGINAL from 11/07/2020 FINDINGS: UTERUS: 9cm x 5cmx 4cm with a combined endometrial thickness of 8.8mm LEFT OVARY: 5eqr4wax2.9cm with a volume of 14.6ml. There are multiple small follicular cysts RIGHT OVARY: [id number] with a volume of 16.9ml.There is a 1.8 cm cystic structure projecting off of the right ovary inferiorly and may represent a small exophytic ovarian cyst. Previously noted cyst appear to be within the substance of the ovary and is no longer apparent. There are multiple small ovarian follicles No cul-de-sac fluid IMPRESSION: 1.8 cm cyst adjacent to the inferior aspect and medial aspect of the right ovary and may represent a small exophytic follicular cyst. Previously noted complex cyst within the ovary is no longer apparent. Polycystic appearance of both ovaries. Dictated by: Jimmy Caal MD 02/01/2021 17:22 Jimmy Caal MD in [facility] 02/01/2021 17:22
== END ==
PROVIDERS: PCP Internal Medicine Adolescent Medicine; Visit Provider Nurse Practitioner Obstetrics & Gynecology
DX: N83.201 Unspecified ovarian cyst, right side (principal)
CPT/HCPCS: 76830

== ENCOUNTER 2022-04-07 08:52 | Emergency (ER) | payer BC, SELFPAY ==
[2022-04-07 09:10] VITALS: BP 131/90; PULSE 82; RESP 18; TEMP 36.9; O2SAT 99; BMI 36.8
--- NOTE | 2022-04-07 09:36 | EXP.UTC ---
Discharge Plan Disposition Patient Disposition: Home, Self-Care Condition: Good Prescriptions Prescriptions: New sulfacetamide sodium 10 % drops 1 drp ophthalmic (eye) Q4H 7 Days Qty: 5 0RF Rx Instructions: rt eye No Action lisinopril 10 mg tablet 10 mg PO DAILY paroxetine HCl 20 mg tablet 20 mg PO DAILY Referrals Follow up/Referrals: Juan Moe MD [Primary Care Provider] - See instructions Activity Restrictions/Add. Instructions Additional Instructions/Restrictions: follow up with pcp if needed if sorsen or no improvement return or be seen in ed Clinical Impressions Clinical Impression: [place] eye disease of right eye Stand Alone Forms Stand Alone Forms: Work/School Release Instructions Patient Instructions: DI for Conjunctivitis Discharge ED Provider: Veronica ([facility])Barrie [facility] [place] General Stated complaint: RT eye drainage w/ redness Mode of Arrival: Ambulatory Source of Information: Patient Limitations: No Limitations Time Seen by Provider: 04/07/22 09:36 Description of Symptoms (Recalled from Triage Doc. by RN): PATIENT C/O PINK EYE TO RIGHT EYE SINCE THIS MORNING HEENT Symptoms (Recalled from RN notes): Yes Resp Symptoms (Recalled from RN notes): No Skin Symptoms (Recalled from RN notes): No MS Symptoms (Recalled from RN notes): No Functional Status (Recalled from RN notes): WNL History of Present Illness Provider Complaint: 32 yr old female presents for redness and drainage to rt eye Related Data Home Medications Medication Instructions Recorded Confirmed lisinopril 10 mg tablet 10 mg PO DAILY htn 04/06/20 04/07/22 paroxetine HCl 20 mg tablet 20 mg PO DAILY mood 04/06/20 04/07/22 Previous Rx's Medication Instructions Recorded sulfacetamide sodium 10 % eye drops 1 drp ophthalmic (eye) Q4H 7 days 04/07/22 #5 mL Allergies Allergy/AdvReac Type Severity Reaction Status Date / Time No Known Allergies Allergy Verified 12/18/20 16:29 Worker's Comp Is this a Worker's Comp case?: No [facility] 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 , 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) Anxiety Hypertension Surgical History , 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) History of section History of cholecystectomy History of tubal ligation 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 , 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) Smoking Status: Never smoker alcohol intake: never substance use type: denies use current occupational status: employed Travel in the last 8 weeks: None household members: family housing: house current occupational exposures/hazards: No caffeine: Yes ROS Obtained: Yes All systems reviewed & no additional complaints except as documented Constitutional Constitutional: Reports system reviewed and no additional complaints, except as documented Eyes Eyes: Reports system reviewed and no additional complaints, except as documented, Reports eye discharge and Reports irritation ENT Ears, Nose, Mouth, and Throat: Reports system reviewed and no additional complaints, except as documented Cardiovascular Cardiovascular: Reports system reviewed and no additional complaints, except as documented Respiratory Respiratory: Reports system reviewed and no additional complaints, except as documented Gastrointestinal Gastrointestingal: Reports system reviewed and no additional complaints, except as documented Musculoskeletal Musculoskeletal: Reports system reviewed and no additional complaints, except as documented Integumentary/Breasts Skin/Breast: Reports system reviewed and no additional complaints, except as documented Neurologic Neurologic: Reports system reviewed and no additional complaints, except as documented Endocrine Endocrine: Reports system reviewed and no additional complaints, except as documented Hematologic/Lymphatic Henatologic/Lymphatic: Reports system reviewed and no additional complaints, except as docu
[2022-04-07 09:42] VITALS: BP 131/90; PULSE 82; RESP 18; TEMP 36.9; O2SAT 99
== END 2022-04-07 09:47 | disposition home or self-care (01) ==
PROVIDERS: Emergency Provider Nurse Practitioner Family; PCP Internal Medicine Adolescent Medicine
DX: H10.021 Other mucopurulent conjunctivitis, right eye (principal)
CPT/HCPCS: 99212; G0463

== ENCOUNTER → 2022-09-19 09:41 | Outpatient (CLI) | payer BC, SELFPAY ==
[2022-09-19 09:48] LABS: Bordetella Pertussis Not Detected (NotDetected); Chlamydophila Pneumoniae, PCR Not Detected (NotDetected); Coronavirus 19, PCR Not Detected (NotDetected); Coronavirus 229E Not Detected (NotDetected); Coronavirus NL63 Not Detected (NotDetected); Coronavirus OC43 Not Detected (NotDetected); Coronovirus HKU1,PCR Not Detected (NotDetected); Human Metapneumovirus Not Detected (NotDetected); Influenza A, PCR Not Detected (NotDetected); Influenza AH1, 2009 Not Detected (NotDetected); Influenza AH1, PCR Not Detected (NotDetected); Influenza AH3,PCR Not Detected (NotDetected); Influenza B, PCR Not Detected (NotDetected); Mycoplasma Pneumoniae, PCR Not Detected (NotDetected); Parainfluenza 1, PCR Not Detected (NotDetected); Parainfluenza 2, PCR Not Detected (NotDetected); Parainfluenza 3, PCR Not Detected (NotDetected); Parainfluenza 4, PCR Not Detected (NotDetected); Respiratory Syncytial Virus Not Detected (NotDetected); Rhinovirus/Enterovirus Not Detected (NotDetected)
[2022-09-19 11:55] LABS: Adenovirus,PCR Detected (NotDetected)
== END ==
LOC: LAB 09:43
PROVIDERS: PCP Nurse Practitioner Family; Visit Provider Nurse Practitioner Family
DX: R50.9 Fever, unspecified (principal); B34.0 Adenovirus infection, unspecified
CPT/HCPCS: 87581; 87632; 87798; C9803; U0003; U0005

== ENCOUNTER 2022-09-20 09:48 | Emergency (ER) | payer BC, SELFPAY ==
[2022-09-20 09:50] VITALS: BP 136/86; PULSE 91; RESP 19; TEMP 37.2; O2SAT 98; BMI 41.1
--- NOTE | 2022-09-20 10:10 | EXP.UTC ---
Discharge Plan Disposition Patient Disposition: Home, Self-Care Condition: Good Prescriptions Prescriptions: New fluticasone propionate [Flonase Allergy Relief] 50 mcg/actuation spray,suspension 1 - 2 spray intranasal DAILY Qty: 16 0RF Rx Instructions: administer into each nostril azithromycin [Zithromax Z-Wilber] 250 mg tablet See Rx Instructions .ROUTE .COMPLEX 5 Days Qty: 6 0RF Rx Instructions: For 250 mg dose pack: take 500 mg today (day 1), then 250 mg for 4 days (days 2-5) methylprednisolone [Medrol (Wilber)] 4 mg tablets,dose pack See Rx Instructions .Route .COMPLEX 6 Days Qty: 21 0RF Rx Instructions: taper pack; No Action paroxetine HCl 20 mg tablet 20 mg PO DAILY hydroxyzine HCl 25 mg tablet 25 mg PO BID Label Comments: TAKE ONE TABLET BY MOUTH TWICE DAILY NEEDED paroxetine HCl 40 mg tablet 40 mg PO DAILY Label Comments: TAKE 1 TABLET BY MOUTH ONCE DAILY bupropion HCl 150 mg tablet extended release 24 hr 150 mg PO DAILY Label Comments: TAKE ONE TABLET BY MOUTH EVERY DAY Referrals Follow up/Referrals: Juan Moe MD [Primary Care Provider] - See instructions Activity Restrictions/Add. Instructions Additional Instructions/Restrictions: *Monitor Temp, Over the counter Motrin or Tylenol as directed/as needed Tylenol every 4 hours and Motrin every 6 hours (as long as your family doctor has told you that you can take it) for fever or pain. and straight to ER if unable to lower temp less than 101.0 after medication given *Warm salt water gargles may help to soothe the throat *Throat Lozenges? *Warm fluids like tea with honey may help to soothe the throat? *Sleep elevated *Humidifier/Vaporizer *Flonase 2 sprays in each nostril daily but be aware that it may take 2-3 days before you notice improvement *Bromfed may cause drowsiness. Know how it effects you (your child) before driving, caring for small child, or sending your child to school. Not other antihistamines/allergy medications while taking bromfed Your throat swab was sent for culture. Those results are typically sent to your primary care. Be sure to follow up in 2-3 days with your family doctor/primary care physician if no improvement so they can review those result and treat if necessary. If you don?t have a primary care doctor, I recommend you get one but in the mean time, you will have to return to a walk in clinic Follow up IMMEDIATELY for new or worsening symptoms or no Noticeable improvement over the next 48-72 hours. 911 for difficulty breathing or swallowing Clinical Impressions Clinical Impression: Strep throat Stand Alone Forms Stand Alone Forms: Work/School Release Instructions Patient Instructions: DI for Strep Throat, Strep Throat Discharge ED Provider: Beverly Oden [facility] [place] General Stated complaint: congestion, cough, sore throat Mode of Arrival: Ambulatory Source of Information: Patient Limitations: No Limitations Time Seen by Provider: 09/20/22 10:10 Description of Symptoms (Recalled from Triage Doc. by RN): ear full and sore throat HEENT Symptoms (Recalled from RN notes): Yes Resp Symptoms (Recalled from RN notes): No Skin Symptoms (Recalled from RN notes): No MS Symptoms (Recalled from RN notes): No Functional Status (Recalled from RN notes): n/s History of Present Illness Provider Complaint: Patient states that she has been having ear fullness, sore throat, headache, nasal congestion and over all not feeling well States that she seen her PCP earlier this week and was dx with adenovirus States that since then her throat is hurting worse and she feels like she has fluid in her ears so she came in to get checked Related Data Home Medications Medication Instructions Recorded Confirmed paroxetine HCl 20 mg tablet 20 mg PO DAILY mood 04/06/20 09/20/22 bupropion HCl 150 mg 24 hr tablet, 150 mg PO DAILY . 09/20/22 09/20/22
[2022-09-20 10:13] LABS: UTC Strep Screen (Rapid) Positive (Negative)
[2022-09-20 10:48] VITALS: BP 136/86; PULSE 91; RESP 19; TEMP 37.2; O2SAT 98
== END 2022-09-20 10:47 | disposition home or self-care (01) ==
PROVIDERS: Emergency Provider Nurse Practitioner; PCP Internal Medicine Adolescent Medicine
DX: J02.0 Streptococcal pharyngitis (principal); R51.9 Headache, unspecified; H92.03 Otalgia, bilateral; R09.81 Nasal congestion; I10 Essential (primary) hypertension
CPT/HCPCS: 87880; 99212; 99214; G0463

== ENCOUNTER 2023-11-01 07:59 | Emergency (ER) | payer BC, SELFPAY ==
[2023-11-01 08:10] VITALS: BP 121/84; PULSE 95; RESP 20; TEMP 36.5; O2SAT 98; BMI 32.8
[2023-11-01 08:39] LABS: UTC Strep Screen (Rapid) Negative (Negative)
--- NOTE | 2023-11-01 08:42 | ED_ITS ---
Discharge Plan Disposition Patient Disposition: Home, Self-Care Condition: Good Prescriptions Prescriptions: No Action trazodone 50 mg tablet 50 mg PO HS lisinopril 10 mg tablet 10 mg PO DAILY omeprazole 20 mg capsule,delayed release(DR/EC) 20 mg PO DAILY Patient Comments: TAKE 1 CAPSULE BY MOUTH ONCE DAILY vilazodone 20 mg tablet 20 mg PO DAILY Ubrelvy 100 mg tablet 100 mg PO DAILY Patient Comments: TAKE 1 TABLET BY MOUTH ONCE DAILY NEEDED FOR 9 DAYS Referrals Follow up/Referrals: Juan Moe MD [Primary Care Provider] - See instructions Activity Restrictions/Add. Instructions Additional Instructions/Restrictions: No sign of a bacterial infection. Likely viral. Viruses can take 7-14 days to run their course. Nasal saline and bulb syringe or nose Josephine to remove nasal drainage to help with nasal congestion. Hard to eat, drink, sleep with nasal congestion so important to keep this cleaned out. Monitor temp. Tylenol or Motrin as needed for pain or fever Encourage fluids, water, Gatorade, Powerade, Pedialyte if infant/toddler/child Warm salt water gargles Warm fluids Sore throat lozenges Sleep elevated Humidifier/vaporizer Follow-up immediately for new or worsening symptoms or no noticeable improvement over the next 48-72 hours. Clinical Impressions Clinical Impression: Upper respiratory infection Instructions Patient Instructions: DI for Viral Upper Respiratory Infection -- Adult Discharge ED Provider: Veronica ([facility])[place] [facility] [place] General Stated complaint: fever, body aches Mode of Arrival: Ambulatory Source of Information: Patient Limitations: No Limitations Time Seen by Provider: 11/01/23 08:42 Description of Symptoms (Recalled from Triage Doc. by RN): PATIENT C/O FEVER, CHILLS, AND SORE THROAT SINCE YESTERDAY HEENT Symptoms (Recalled from RN notes): Yes Resp Symptoms (Recalled from RN notes): No Skin Symptoms (Recalled from RN notes): No MS Symptoms (Recalled from RN notes): No Functional Status (Recalled from RN notes): WNL History of Present Illness Provider Complaint: 33 yr old female presents for sore throat, chills, and fever that started yesterday Related Data Home Medications Medication Instructions Recorded Confirmed lisinopril 10 mg tablet 10 mg PO DAILY 12/31/22 11/01/23 trazodone 50 mg tablet 50 mg PO HS 12/31/22 11/01/23 omeprazole 20 mg capsule,delayed 20 mg PO DAILY 11/01/23 11/01/23 release ubrogepant 100 mg tablet (Ubrelvy) 100 mg PO DAILY 11/01/23 11/01/23 vilazodone 20 mg tablet 20 mg PO DAILY 11/01/23 11/01/23 Allergies Allergy/AdvReac Type Severity Reaction Status Date / Time No Known Allergies Allergy Verified 12/31/22 15:12 Worker's Comp Is this a Worker's Comp case?: No [facility]SH [facility] Disclaimer: The information contained in this section may have been updated after the patient was seen, as this information can be updated by other users. 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) Smoking Status: Never smoker alcohol intake: never substance use type: denies use current occupational status: employed Travel in the last 8 weeks: None household members: family housing: house current occupational exposures/hazards: No caffeine: Yes ROS Obtained: Yes All systems reviewed & no additional complaints except as documented Constitutional Constitutional: Reports system reviewed and no additional complaints, except as documented Eyes Eyes: Reports system reviewed and no additional complaints, except as documented ENT Ears, Nose, Mouth, and Throat: Reports system reviewed and no additional complaints, except as documented, Reports nasal discharge, Reports post nasal drip and Reports sore throat Cardiovascular Cardiovascular: Reports system reviewed and no additional complaints, except as documented Respiratory Respiratory: Reports system reviewed and no additional complaints, except as documented Gastrointestinal Gastrointestingal: Reports system reviewed and no additional complaints, except as documented Musculoskeletal Musculoskeletal: Reports system reviewed and no additional complaints, except as documented Integumentary/Breasts Skin/Breast: Reports system reviewed and no additional complaints, except as documented Neurologic Neurologic: Reports system reviewed and no additional complaints, except as documented Endocrine Endocrine: Reports system reviewed and no additional complaints, except as documented Hematologic/Lymphatic Henatologic/Lymphatic: Reports system reviewed and no additional complaints, except as documented Allergic/Immunologic Allergic/Immunologic: Reports system reviewed and no additional complaints, except as documented Physical Exam General General appearance: alert and in no apparent distress Eye Eye exam: Present normal appearance and PERRL ENT ENT exam: Present mucous membranes moist and TM's normal bilaterally Expanded ENT Exam Throat exam: Present tonsillar erythema Respiratory Respiratory exam: Present normal lung sounds bilaterally Cardiovascular Cardiovascular exam: Present regular rate and normal rhythm Neurological Exam Neurological exam: Present alert and oriented X3 Skin Skin exam: Present warm and dry Medical Decision Making Medical Records Medical records reviewed: Yes I reviewed the patient's medical records. Go Inquiry Pt receiving controlled substance: No Go was queried for this patient: No Vital Signs: 11/01/23 08:10 Temperature 97.7 F Temperature Source Oral Pulse Rate [Left Brachial] 95 H Respiratory Rate 20 Blood Pressure [Left Arm] 121/84 Blood Pressure Mean [Left Arm] 96 Blood Pressure Source [Left Arm] Automatic Cuff Blood Pressure Position [Left Arm] Sitting 02 Sat by Pulse Oximetry 98 Oxygen Delivery Method Room Air Lab Data Lab results reviewed: Yes I reviewed the patient's lab results. Lab Results 11/01/23 08:38: Strep Scn Rapid Clinic Negative Orders (Tests/Meds): ORDERS Category Date Time Status Strep Screen Confirmation Stat Micro 11/01/23 08:38 Received
[2023-11-01 08:52] VITALS: BP 121/84; PULSE 95; RESP 20; TEMP 36.5; O2SAT 98
[2023-11-01 09:00] LABS: Coronavirus 19, PCR Not Detected (NotDetected); Influenza A, PCR Not Detected (NotDetected); Influenza B, PCR Not Detected (NotDetected)
== END 2023-11-01 08:58 | disposition home or self-care (01) ==
PROVIDERS: Emergency Provider Nurse Practitioner Family; PCP Internal Medicine Adolescent Medicine
DX: R50.9 Fever, unspecified (principal); J06.9 Acute upper respiratory infection, unspecified; B34.9 Viral infection, unspecified
CPT/HCPCS: 87636; 87880; 99212; 99213; G0463

== ENCOUNTER 2024-04-29 07:18 | Outpatient (CLI) | payer BC, SELFPAY ==
[2024-04-29 07:34] LABS: Basophils # 0.1 K/mm3 (0-0.2); Basophils % 1.3 % (0.1-2.0); Eosinophils # 0.4 K/mm3 (0.0-0.4); Eosinophils % 6.4 % (0.1-12.0); Hematocrit 41.5 % (37.0-47.0); Hemoglobin 14.1 g/dL (12.2-16.2); Lymphocytes # 2.4 K/mm3 (0.7-4.5); Lymphocytes % 39.3 % (10-50); Mean Corpuscular HGB Conc 34.1 g/dL (31.8-35.4); Mean Corpuscular Hemoglobin 30.2 pg (27.0-31.2); Mean Corpuscular Volume 88.5 fl (81-99); Monocytes # 0.4 K/mm3 (0.1-1.0); Monocytes % 6.1 % (1.7-9.3); Neutrophils # 2.9 K/mm3 (1.8-7.8); Neutrophils % 46.9 % (37.0-80.0); Platelet Count 327 K/mm3 (142-424); Red Blood Count 4.68 M/mm3 (4.20-5.40); Red Cell Distribution Width 13.2 % (11.5-17.5); White Blood Count 6.2 K/mm3 (4.8-10.8)
[2024-04-29 08:59] LABS: Albumin Level 4.6 g/dl (3.5-5.0); Chloride 103 mmol/L (98-107); Potassium 4.2 mmoL/L (3.5-5.1); Sodium 139 mmol/L (136-145)
[2024-04-29 09:01] LABS: Alanine Aminotransferase 15 U/L (12-78); Aspartate Amino Transferase 23 U/L (14-36); Blood Urea Nitrogen 12 mg/dl (7-17); Estimated Glomerular Filt Rate 97 ml/min (>60); GFR (African American) 117 ML/MIN (>60)
[2024-04-29 09:02] LABS: Albumin/Globulin Ratio 1.7 (1.1-1.8); Alkaline Phosphatase 68 U/L (38-126); Anion Gap 10.2 mEq/L (5-15); Bilirubin,Total 0.6 mg/dl (0.2-1.3); Calcium 9.6 mg/dl (8.4-10.2); Carbon Dioxide 30 mmol/L (22.0-30.0); Chol/HDL Ratio 3.7 (1-3.5); Cholesterol 192 mg/dl (140-200); Globulin 2.7 g/dL (1.3-3.2); Glucose 84 mg/dl (74-100); HDL Cholesterol 52 mg/dl (40-60); Total Protein,Serum 7.3 g/dl (6.3-8.2); Triglycerides 136 mg/dl (30-150); VLDL Cholesterol 27 mg/dL (0-40)
[2024-04-29 09:13] LABS: Direct LDL Cholesterol 105.22 mg/dL (100-129)
[2024-04-29 09:32] LABS: Thyroid Stimulating Hormone 1.17 uIU/mL (0.465-4.68)
[2024-04-30 08:22] LABS: FSH 3.9 mIU/mL (.); LH 16.8 mIU/mL (.)
== END 2024-04-29 23:59 | disposition home or self-care (01) ==
LOC: LAB 07:19
PROVIDERS: PCP Internal Medicine Adolescent Medicine; Visit Provider Nurse Practitioner Family
DX: Z00.00 Encounter for general adult medical examination without abnormal findings (principal); R53.83 Other fatigue; N92.6 Irregular menstruation, unspecified
CPT/HCPCS: 36415; 80050; 80053; 80061; 82670; 83001; 83002; 84443; 85025

== ENCOUNTER 2024-06-11 12:21 | Outpatient (CLI) | payer BC, SELFPAY | END 2024-06-11 23:59 | disposition home or self-care (01) | LOC: LAB 12:22 | PROVIDERS: PCP Internal Medicine Adolescent Medicine; Visit Provider Internal Medicine Adolescent Medicine | DX: R35.0 Frequency of micturition (principal) | CPT/HCPCS: 87086; 87088; 87186 ==